=== PATIENT | female | born 1975 | race American Indian/Alaskan Native ===

== ENCOUNTER 2016-08-16 08:37 | Emergency (ER) | payer MEDICARE ==
[2016-08-16 08:46] VITALS: BP 119/79
--- NOTE | 2016-08-16 09:51 | Emergency Department Report ---
ED Extremity Problem HPI - General Chief complaint: Extremity Injury, Lower Stated complaint: LUMP ON RT BACK LEG Time Seen by Provider: 08/16/16 09:02 Source: patient Mode of arrival: Ambulatory Limitations: No Limitations - History of Present Illness Initial comments: PT c/o R calf pain x 3 days. PT states the pain is the worst in the morning and her calf will be swollen. PT denies injury or trauma. 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 PT thought the pain was related to standing on her feet and working 16 hour shifts. PT states she came to ED after being told that she could have DVT. PT denies leg injury MD Complaint: extremity pain Onset/Timin -: Gradual Location: right, lower extremity (calf ) History of Same: No Severity scale (0 -10): 5 Quality: aching Consistency: intermittent Worsens with: walking, palpation, other (first thing in the am ) Associated Symptoms: denies: chest pain, shortness of breath - Related Data Home Medications Medication Instructions Recorded Confirmed Last Taken Cyanocobalamin (Vitamin B-12) 2,500 mcg SL DAILY 02/15/16 02/15/16 02/14/16 [Vitamin B-12] Vit No.130/Iron/FA 02/15/16 02/13/16 [ Tablet] Previous Rx's Medication Instructions Recorded Last Taken Type Metoclopramide [Reglan] 10 mg PO TID PRN #20 tab 02/16/16 Unknown Rx Pantoprazole [Protonix] 40 mg PO QDAY #20 tablet 02/16/16 Unknown Rx traMADol [Ultram] 50 mg PO Q6HR PRN #12 tablet 08/16/16 Unknown Rx Allergies Allergy/AdvReac Type Severity Reaction Status Date / Time No Known Allergies Allergy Unverified 02/15/16 14:24 ED Review of Systems ROS: Stated complaint: LUMP ON RT BACK LEG Other details as noted in HPI Comment: All other systems reviewed and negative Constitutional: denies: fever Respiratory: denies: cough, shortness of breath, SOB with exertion, SOB at rest Cardiovascular: denies: chest pain Musculoskeletal: as per HPI, other (R calf pain and swelling ) Skin: denies: rash, change in color Neurological: abnormal gait (due to leg pain ). denies: weakness, numbness, paresthesias ED Past Medical Hx - Past Medical History Previous Medical History?: Yes Hx CVA: Yes (1999) Additional medical history: Vaginal delivery x 1 - Surgical History Past Surgical History?: Yes Additional Surgical History: gastric sleeve -2015 - Social History Smoking Status: Former Smoker Substance Use Type: Alcohol, Non Opiate Pain - Medications Home Medications: Home Medications Medication Instructions Recorded Confirmed Last Taken Type Cyanocobalamin (Vitamin B-12) 2,500 mcg SL DAILY 02/15/16 02/15/16 02/14/16 History [Vitamin B-12] Vit No.130/Iron/FA 02/15/16 02/13/16 History [ Tablet] Metoclopramide [Reglan] 10 mg PO TID PRN #20 tab 02/16/16 Unknown Rx Pantoprazole [Protonix] 40 mg PO QDAY #20 tablet 02/16/16 Unknown Rx traMADol [Ultram] 50 mg PO Q6HR PRN #12 tablet 08/16/16 Unknown Rx ED Physical Exam - General Limitations: No Limitations General appearance: alert, in no apparent distress - Head Head exam: Present: atraumatic, normocephalic - Eye Eye exam: Present: normal appearance, PERRL, EOMI. Absent: conjunctival injection - ENT ENT exam: Present: normal exam, normal external ear exam - Neck Neck exam: Present: normal inspection, full ROM. Absent: lymphadenopathy - Respiratory Respiratory exam: Present: normal lung sounds bilaterally. Absent: respiratory distress - Cardiovascular Cardiovascular Exam: Present: regular rate, normal rhythm, normal heart sounds - Extremities Exam Extremities exam: Present: normal capillary refill, calf tenderness (R leg ). Absent: pedal edema, joint swelling - Expanded Lower Extremity Exam Right Knee exam: Present: normal inspection, full ROM Lower Leg exam: Present: tenderness, swelling (mild). Absent: erythema, palpable cord, Sindhu's sign (negative sindhu's sign, negative Carlson's test) Ankle exam: Present: normal inspection, full ROM. Absent: tenderness, swelling Neuro vascular tendon exam: Present: no vascular compromise. Absent: pulse deficit Gait: Positive: antalgic - Back Exam Back exam: Present: normal inspection, full ROM. Absent: tenderness, CVA tenderness (R), CVA tenderness (L) - Neurological Exam Neurological exam: Present: alert, oriented X3 - Psychiatric Psychiatric exam: Present: normal affect, normal mood - Skin Skin exam: Present: warm, dry, intact, normal color ED Course Vital Signs 08/16/16 08:42 Temperature 97.6 F Pulse Rate 76 Respiratory 18 Rate Blood Pressure 119/79 O2 Sat by Pulse 100 Oximetry - Reevaluation(s) Reevaluation #1: 08/16/16 09:56 PT aware of US results. PT states she is off of work today and she does not need a work note. PT offered crutches for comfort but she declined. PT has no questions at this time. - Pulse Oximetry Interpretation Digit-Finger Initial Pulse Oximetry Readin Actions Taken: none ED Medical Decision Making - Differential Diagnosis strain, edema, dvt Critical Care Time: No Critical care attestation.: If time is entered above; I have spent that time in minutes in the direct care of this critically ill patient, excluding procedure time. ED Disposition Clinical Impression: Right calf pain Disposition: DISCHARGED TO HOME OR SELFCARE Is pt being admited?: No Does the pt Need Aspirin: No Condition: Stable Instructions: Leg Edema (ED) Additional Instructions: elevate your legs No driving or ETOH with Ultram compression socks while at work Prescriptions: traMADol [Ultram] 50 mg PO Q6HR PRN #12 tablet PRN Reason: Pain Referrals: PRIMARY CAREMD [Primary Care Provider] - 3-5 Days KARON DURBIN MD [Staff Physician] - 3-5 Days Time of Disposition: 09:59
--- NOTE | 2016-08-17 08:23 | Vascular Lab Report ---
Right Lower Extremity Venous Duplex Study: Reason for Exam: Pain of the right lower extremity. Comments on the Right: All veins visualized are freely compressible without evidence of internal echogenicity. Flow is spontaneous and phasic throughout. No evidence of acute or chronic thrombus is seen in any of the vessels visualized. Comments on the Left: A limited duplex study was done of the proximal veins of the left lower extremity. All veins visualized are freely compressible without evidence of internal echogenicity. Flow is spontaneous and phasic throughout. No evidence of acute or chronic thrombus is seen in any of the vessels visualized. Impression: No evidence of acute or chronic deep venous thrombosis in the right lower extremity.
== END 2016-08-16 10:37 | disposition home or self-care (01) ==
LOC: ED 08:37
DX: M79.661 Pain in right lower leg (principal); Z86.73 Personal history of transient ischemic attack (TIA), and cerebral infarction without residual deficits; Z87.891 Personal history of nicotine dependence